=== PATIENT | male | born 1975 | race Caucasian/White ===

== ENCOUNTER → 2023-12-04 | Outpatient (CLI) | payer SELFPAY ==
--- NOTE | 2023-12-04 09:56 | ECHOCS_ITS ---
Reason For Study: ABN EKG, PRE OP Procedure This was a 2D Doppler, Color Flow transthoracic echocardiogram. The study was technically difficult. Contrast injection was performed. Exam performed in department. Left Ventricle Normal size and thickness. The left ventricular ejection fraction is 55 %. Normal diastololic function. Right Ventricle Normal right ventricle. Atria The left and right atria are normal. Mitral Valve Trivial mitral valve insufficiency. Tricuspid Valve Trivial tricuspid valve insufficiency. Unable to estimate RV systolic pressure due to insufficient tricuspid regurgitant envelope. Aortic Valve Trisinus/trileaflet aortic valve. Pulmonic Valve The pulmonic valve is not well visualized. Great Vessels Normal sized aortic root. Pericardium/Pleural No pericardial effusion. Medication 22 gauge I.V. with prn adaptor inserted into right arm. Diluted definity 1ml given slow IV push to enhance endocardial definition. MMode/2D Measurements & Calculations LVIDd: 5.2 cm IVSd: 1.0 cm LVOT diam: 2.6 cm LVIDs: 3.3 cm LVPWd: 1.1 cm FS: 35.7 % LVOT area: 5.5 cm2 Ao root diam: 3.5 cm LAV(MOD-bp): 55.0 ml LVAd ap4: 47.2 cm2 LAV(MOD-bp) Indexed: 24.2 ml/m2 LVLd ap4: 10.0 cm LAV(MOD-sp2): 39.8 ml EDV(MOD-sp4): 179.4 ml LAV(MOD-sp4): 74.0 ml EDV(sp4-el): 188.8 ml LVAs ap4: 29.5 cm2 LVLs ap4: 8.4 cm ESV(MOD-sp4): 86.6 ml ESV(sp4-el): 87.8 ml EF(MOD-sp4): 51.8 % EF(sp4-el): 53.5 % SV(MOD-sp4): 92.9 ml SV(sp4-el): 101.0 ml LA A4 area: 22.6 cm2 LA dimension(2D): 3.2 cm RA A4 area: 15.8 cm2 TAPSE: 1.8 cm Time Measurements MV dec time: 0.16 sec Doppler Measurements & Calculations MV E max ruben: 70.3 cm/sec Lat Peak E' Ruben: 16.8 cm/sec Med Peak E' Ruben: 12.3 cm/sec MV A max ruben: 52.5 cm/sec E/E' lat: 4.2 E/E' med: 5.7 MV E/A: 1.3 MV V2 max: 85.9 cm/sec MV dec slope: 444.4 cm/sec2 Ao V2 max: 127.1 cm/sec MV max P.0 mmHg Ao max P.5 mmHg MV V2 mean: 56.6 cm/sec Ao V2 mean: 90.6 cm/sec MV mean P.4 mmHg Ao mean P.7 mmHg MV V2 VTI: 20.7 cm Ao V2 VTI: 26.4 cm MVA(VTI): 6.2 cm2 AV (velocity ratio): 0.89 FARIBA(I,D): 4.9 cm2 FARIBA(V,D): 4.3 cm2 LV V1 max: 100.1 cm/sec SV(LVOT): 128.3 ml PA V2 max: 133.0 cm/sec LV V1 max P.0 mmHg PA V2 mean: 83.6 cm/sec LV V1 mean P.0 mmHg LV V1 mean: 64.5 cm/sec LV V1 VTI: 23.4 cm ECHO/Echo Complete W/ Contrast Interpretation Summary The left ventricular ejection fraction is 55 %. Ordering Physician: Kelley Hope Referring Physician: Kelley Hope Performed By: Tonya Lora RCS
[2023-12-04 12:09] LABS: ALB/GLOB Ratio 1.2 RATIO (0.9-2.4); AST(SGOT) 16 U/L (15-37); Alanine Aminotransfer ALT/SGPT 22 U/L (16-61); Albumin, Serum 4.2 g/dL (3.2-5.0); Alkaline Phosphatase 57 U/L (45-117); Anion Gap 5 (5-15); BUN 18 mg/dL (7-18); BUN/Creat Ratio 19.7 RATIO (10-20); Calcium,Total 9.8 mg/dL (8.5-10.1); Chloride 102 mmol/L (98-107); Cholesterol 430 mg/dL (200); Creatinine, Serum 0.91 mg/dL (0.70-1.30); EST Glomerular Filtration Rate 95 mL/min (>60); Est Glom Filt Rate - Afr Amer 115 mL/min (>60); Globulin 3.6 g/dL (2.2-4.2); Glucose 123 mg/dL (74-106); High Density Lipoprotein 52 mg/dL; Potassium 3.8 mmol/L (3.5-5.1); Protein, Total 7.8 g/dL (6.4-8.2); Sodium Level 135 mmol/L (136-145); Triglycerides 125 mg/dL; Very Low Density Lipoprotein 25 mg/dL (5-40)
== END | disposition home or self-care (01) ==
PROVIDERS: Referring Provider Internal Medicine Cardiovascular Disease; Visit Provider Internal Medicine Cardiovascular Disease
DX: R94.31 Abnormal electrocardiogram [ECG] [EKG] (principal); E66.9 Obesity, unspecified; I25.10 Atherosclerotic heart disease of native coronary artery without angina pectoris
CPT/HCPCS: 36415; 80053; 80061; 93306; Q9957; A4216; C8929

== ENCOUNTER → 2023-12-29 | Outpatient (CLI) | payer SELFPAY ==
--- OUTSIDE RECORDS SUMMARY | 2023-12-29 11:02 | XMS RPT_ITS | CCD ---
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 Name Role Phone DANIS POWERS, DR TOMAS Nicolas Attending Arlen Patel MD, DR TOMAS Nicolas Attending Arlen abbott Medications Current Medications Medication Drug Class(es) Dates Sig (Normalized) Sig (Original) Cod Liver Oil oral capsule (1 source) Start: 09-15-2023 take 1 capsule by mouth once daily Cod Liver Oil oral capsule Dose = 1 cap(s), Oral, Daily, 0 Refill(s) Start Date: 09/15/23 Status: Ordered Vitamin D3 (1 source) Start: 09-15-2023 Vitamin D3 Dose : 100 mcg = 1 tab(s), Oral, Daily, # 90 tab(s), 0 Refill(s) Start Date: 09/15/23 Status: Ordered Results Test Name Value Interpretation Reference Range Facility .Auto Diffon 09-15-2023 Basophil, Absolute 0.0 10 3/mcL Normal 0.0-0.2 [facility] ([place] Comment on above: Performed By: #### G FR, CBC, ADIFF, BMP, ALB, ABSGEL, ANEU, ABOGEL #### [address] [place], [place] [address] Basophils/100 WBC (Bld) 0.3 % Normal 0.0-2.5 [facility] ([place] Comment on above: Performed By: #### G FR, CBC, ADIFF, BMP, ALB, ABSGEL, ANEU, ABOGEL #### [address] [place], [place] [address] Eosinophil, Absolute 0.1 10 3/mcL Normal 0.0-0.4 [facility] ([place] Comment on above: Performed By: #### G FR, CBC, ADIFF, BMP, ALB, ABSGEL, ANEU, ABOGEL #### [address] [address] Eosinophils/100 WBC (Bld) 1.9 % Normal 0.0-7.0 [facility] ([place] Comment on above: Performed By: #### G FR, CBC, ADIFF, BMP, ALB, ABSGEL, ANEU, ABOGEL #### [address] [address] Lymphocyte, Absolute 1.9 10 3/mcL Normal 0.8-3.9 [facility] ([place] Comment on above: Performed By: #### G FR, CBC, ADIFF, BMP, ALB, ABSGEL, ANEU, ABOGEL #### [address] [address] Lymphocytes/100 WBC (Bld) 36.0 % Normal 10.0-50.0 [facility] ([place] Comment on above: Performed By: #### G FR, CBC, ADIFF, BMP, ALB, ABSGEL, ANEU, ABOGEL #### [address] [address] Monocyte, Absolute 0.4 10 3/mcL Normal 0.2-1.0 [facility] ([place] Comment on above: Performed By: #### G FR, CBC, ADIFF, BMP, ALB, ABSGEL, ANEU, ABOGEL #### [address] [address] Monocytes/100 WBC (Bld) 8.1 % Normal 1.7-13.0 [facility] ([place] Comment on above: Performed By: #### G FR, CBC, ADIFF, BMP, ALB, ABSGEL, ANEU, ABOGEL #### [address] [address] Neutrophils/100 WBC (Bld) 53.7 % Normal 37.0-80.0 [facility] ([place] Comment on above: Performed By: #### G FR, CBC, ADIFF, BMP, ALB, ABSGEL, ANEU, ABOGEL #### [address] [address] .GFRon 09-15-2023 GFR Non- 76 ml/min/1.73sqm Normal [facility] ([place] Comment on above: Result Comment: GFR Population mean for , Non- Americans Ages 20-29 = 116 mL/min/1.73 sq.m. Ages 30-39 = 107 mL/min/1.73 sq.m. Ages 40-49 = 99 mL/min/1.73 sq.m. Ages 50-59 = 93 mL/min/1.73 sq.m. Ages 60-69 = 85 mL/min/1.73 sq.m. Ages 70+ = 75 mL/min/1.73 sq.m. Chronic Kidney Disease: Less than 60 mL/min/1.73 square meters End Stage Renal Disease: Less than 15 mL/min/1.73 square meters Performed By: #### G FR, CBC, ADIFF, BMP, ALB, ABSGEL, ANEU, ABOGEL #### [address] [address] GFR 92 ml/min/1.73sqm Normal [facility] ([place] Comment on above: Result Comment: GFR Population mean for , Non- Americans Ages 20-29 = 116 mL/min/1.73 sq.m. Ages 30-39 = 107 mL/min/1.73 sq.m. Ages 40-49 = 99 mL/min/1.73 sq.m. Ages 50-59 = 93 mL/min/1.73 sq.m. Ages 60-69 = 85 mL/min/1.73 sq.m. Ages 70+ = 75 mL/min/1.73 sq.m. Chronic Kidney Disease: Less than 60 mL/min/1.73 square meters End Stage Renal Disease: Less than 15 mL/min/1.73 square meters Performed By: #### G FR, CBC, ADIFF, BMP, ALB, ABSGEL, ANEU, ABOGEL #### [address] [address] .NEUABSon 09-15-2023 Neutrophil, Absolute 2.9 10 3/mcL Normal 2.9-6.2 [facility] ([place] Comment on above: Performed By: #### G FR, CBC, ADIFF, BMP, ALB, ABSGEL, ANEU, ABOGEL #### [address] [address] ABO/Rh (Gel)on 09-15-2023 ABO/Rh Interp Positive Invalid Interpretation Code [facility] ([place] Comment on above: Performed By: #### G FR, CBC, ADIFF, BMP, ALB, ABSGEL, ANEU, ABOGEL #### [address] [address] ABS (Gel)on 09-15-2023 ABSC Interp (Gel) Negative Normal [facility] ([place] Comment on above: Performed By: #### G FR, CBC, ADIFF, BMP, ALB, ABSGEL, ANEU, ABOGEL #### [address] [address] ALBon 09-15-2023 Albumin Level 4.3 G/dL Normal 3.5-5.0 [facility]) Comment on above: Performed By: #### G FR, CBC, ADIFF, BMP, ALB, ABSGEL, ANEU, ABOGEL #### [address] [address] BMPon 09-15-2023 BUN/Creatinine Ratio 16 ratio Normal 7-27 [facility]) Comment on above: Performed By: #### G FR, CBC, ADIFF, BMP, ALB, ABSGEL, ANEU, ABOGEL #### [address] [address] Calcium [Mass/Vol] 9.7 mg/dL Normal 8.4-10.2 [facility] ([place]) Comment on above: Performed By: #### G FR, CBC, ADIFF, BMP, ALB, ABSGEL, ANEU, ABOGEL #### [address] [address] Chloride [Moles/Vol] 100 mmol/L Normal 98-107 [facility]) Comment on above: Performed By: #### G FR, CBC, ADIFF, BMP, ALB, ABSGEL, ANEU, ABOGEL #### [address] [address] CO2 [Moles/Vol] 28 mmol/L Normal 22-29 [facility] ([place] Comment on above: Performed By: #### G FR, CBC, ADIFF, BMP, ALB, ABSGEL, ANEU, ABOGEL #### [address] [address] Creatinine [Mass/Vol] 1.06 mg/dL Normal 0.70-1.30 [facility] ([place] Comment on above: Performed By: #### G FR, CBC, ADIFF, BMP, ALB, ABSGEL, ANEU, ABOGEL #### [address] [address] Electrolyte Balance 9.0 mEq/L Normal 4.0-15.0 [facility] ([place] Comment on above: Performed By: #### G FR, CBC, ADIFF, BMP, ALB, ABSGEL, ANEU, ABOGEL #### [address] [address] Glucose [Mass/Vol] 95 mg/dL Normal 70-105 [facility] ([place]) Comment on above: Performed By: #### G FR, CBC, ADIFF, BMP, ALB, ABSGEL, ANEU, ABOGEL #### [address] [address] Potassium [Moles/Vol] 4.2 mmol/L Normal 3.5-5.1 [facility] ([place] Comment on above: Performed By: #### G FR, CBC, ADIFF, BMP, ALB, ABSGEL, ANEU, ABOGEL #### [address] [address] Sodium [Moles/Vol] 137 mmol/L Normal 136-145 [facility] ([place]) Comment on above: Performed By: #### G FR, CBC, ADIFF, BMP, ALB, ABSGEL, ANEU, ABOGEL #### [address] [address] Urea nitrogen [Mass/Vol] 17 mg/dL Normal 7-18 [facility] ([place] Comment on above: Performed By: #### G FR, CBC, ADIFF, BMP, ALB, ABSGEL, ANEU, ABOGEL #### [place] [id number] CBCon 09-15-2023 Erythrocyte distribution width (RBC) [Ratio] 13.7 % Normal 11.5-14.5 [facility] ([place] Comment on above: Order Comment: Pre-A dmission Testing Performed By: #### G FR, CBC, ADIFF, BMP, ALB, ABSGEL, ANEU, ABOGEL #### [place] [address] Hematocrit (Bld) [Volume fraction] 43.9 % Normal 42.0-52.0 [facility] ([place] Comment on above: Order Comment: Pre-A dmission Testing Performed By: #### G FR, CBC, ADIFF, BMP, ALB, ABSGEL, ANEU, ABOGEL #### [place] [address] Hgb 15.1 G/dL Normal 14.0-18.0 [facility] ([place] Comment on above: Order Comment: Pre-A dmission Testing Performed By: #### G FR, CBC, ADIFF, BMP, ALB, ABSGEL, ANEU, ABOGEL #### [place] [address] MCH (RBC) [Entitic mass] 30.7 pg Normal 27.0-31.2 [facility] ([place] Comment on above: Order Comment: Pre-A dmission Testing Performed By: #### G FR, CBC, ADIFF, BMP, ALB, ABSGEL, ANEU, ABOGEL #### [place] [address] MCHC 34.4 G/dL Normal 31.8-35.4 [facility] ([place] Comment on above: Order Comment: Pre-A dmission Testing Performed By: #### G FR, CBC, ADIFF, BMP, ALB, ABSGEL, ANEU, ABOGEL #### [place] [id number] MCV (RBC) [Entitic vol] 89.2 fL Normal 80.0-94.0 [facility] ([place] Comment on above: Order Comment: Pre-A dmission Testing Performed By: #### G FR, CBC, ADIFF, BMP, ALB, ABSGEL, ANEU, ABOGEL #### [address] [address] Platelet 208 10 3/mcL Normal 130-400 [facility] ([place] Comment on above: Order Comment: Pre-A dmission Testing Performed By: #### G FR, CBC, ADIFF, BMP, ALB, ABSGEL, ANEU, ABOGEL #### [address] [address] Platelet mean volume (Bld) [Entitic vol] 9.0 fL Normal 7.4-10.4 [facility] [place] Comment on above: Order Comment: Pre-A dmission Testing Performed By: #### G FR, CBC, ADIFF, BMP, ALB, ABSGEL, ANEU, ABOGEL #### [address] [address] RBC 4.92 10 6/mcL Normal 4.04-6.13 [facility] [place] Comment on above: Order Comment: Pre-A dmission Testing Performed By: #### G FR, CBC, ADIFF, BMP, ALB, ABSGEL, ANEU, ABOGEL #### [address] [address] WBC 5.3 10 3/mcL Normal 4.6-10.8 [facility] [place] Comment on above: Order Comment: Pre-A dmission Testing Performed By: #### G FR, CBC, ADIFF, BMP, ALB, ABSGEL, ANEU, ABOGEL #### [address] [address] LABORATORYOrdered By: Digna Randall on 09-15-2023 ABO and Rh group Nom (Bld) Blood group B Rh(D) positive Invalid Interpretation Code AO BB Auto SS Blood group antibody screen Ql Negative ABSC (09/15/23 11:06 AM) Normal AO BB Auto SS LABORATORYOrdered By: [employer] on 09-15-2023 Albumin BCP dye [Mass/Vol] 4.3 G/dL Normal 3.5 - 5.0 G/dL AO ADM SS Basophil, Absolute 0.0 103/mcL Normal 0.0 - 0.2 10^3/mcL AO Workflow SS Basophils/100 WBC (Bld) 0.3 % Normal 0.0 - 2.5 % AO Workflow SS Calcium [Mass/Vol] 9.7 mg/dL Normal 8.4 - 10. 2 mg/dL AO ADM SS Chloride [Moles/Vol] 100 mmol/L Normal 98 - 10 7 mmol/L AO ADM SS CO2 [Moles/Vol] 28 mmol/L Normal 22 - 29 mmol/L AO ADM SS Creatinine [Mass/Vol] 1.06 mg/dL Normal 0.70 - 1.30 mg/dL AO ADM SS Electrolyte Balance 9.0 mEq/L Normal 4.0 - 15 .0 mEq/L AO ADM SS Eosinophil, Absolute 0.1 103/mcL Normal 0.0 - 0 .4 10^3/mcL AO Workflow SS Eosinophils/100 WBC (Bld) 1.9 % Normal 0.0 - 7.0 % AO Workflow SS Erythrocyte distribution width (RBC) [Ratio] 13.7 % Normal 11.5 - 14.5 % AO Workflow SS GFR/1.73 sq M.predicted among blacks MDRD (S/P/Bld) [Vol rate/Area] 92 ml/min/1.73sqm Invalid Interpretation Code AO Chemistry S Comment on above: Interpretive Data: GFR Population mean for , Non- Americans Ages 20-29 = 116 mL/min/1.73 sq.m. Ages 30-39 = 107 mL/min/1.73 sq.m. Ages 40-49 = 99 mL/min/1.73 sq.m. Ages 50-59 = 93 mL/min/1.73 sq.m. Ages 60-69 = 85 mL/min/1.73 sq.m. Ages 70+ = 75 mL/min/1.73 sq.m. Chronic Kidney Disease: Less than 60 mL/min/1.73 square meters End Stage Renal Disease: Less than 15 mL/min/1.73 square meters GFR/1.73 sq M.predicted among non-blacks MDRD (S/P/Bld) [Vol rate/Area] 76 ml/min/1.73sqm Invalid Interpretation Code AO Chemistry S Comment on above: Interpretive Data: GFR Population mean for , Non- Americans Ages 20-29 = 116 mL/min/1.73 sq.m. Ages 30-39 = 107 mL/min/1.73 sq.m. Ages 40-49 = 99 mL/min/1.73 sq.m. Ages 50-59 = 93 mL/min/1.73 sq.m. Ages 60-69 = 85 mL/min/1.73 sq.m. Ages 70+ = 75 mL/min/1.73 sq.m. Chronic Kidney Disease: Less than 60 mL/min/1.73 square meters End Stage Renal Disease: Less than 15 mL/min/1.73 square meters Glucose [Mass/Vol] 95 mg/dL Normal 70 - 105 mg/dL AO ADM SS Hematocrit (Bld) [Volume fraction] 43.9 % Normal 42.0 - 52.0 % AO Workflow SS Hemoglobin (Bld) [Mass/Vol] 15.1 G/dL Normal 14.0 - 18.0 G/dL AO Workflow SS Lymphocyte, Absolute 1.9 103/mcL Normal 0.8 - 3 .9 10^3/mcL AO Workflow SS Lymphocytes/100 WBC (Bld) 36.0 % Normal 10.0 - 50.0 % AO Workflow SS MCH (RBC) [Entitic mass] 30.7 pg Normal 27.0 - 31.2 pg AO Workflow SS MCHC 34.4 G/dL Normal 31.8 - 35.4 G/dL AO Workflow SS MCV (RBC) [Entitic vol] 89.2 fL Normal 80.0 - 94.0 fL AO Workflow SS Monocyte, Absolute 0.4 103/mcL Normal 0.2 - 1.0 10^3/mcL AO Workflow SS Monocytes/100 WBC (Bld) 8.1 % Normal 1.7 - 13.0 % AO Workflow SS Neutrophil, Absolute 2.9 103/mcL Normal 2.9 - 6 .2 10^3/mcL AO Workflow SS Neutrophils/100 WBC (Bld) 53.7 % Normal 37.0 - 80.0 % AO Workflow SS Platelet mean volume (Bld) [Entitic vol] 9.0 fL Normal 7.4 - 10.4 fL AO Workflow SS Platelets (Bld) [#/Vol] 208 103/mcL Normal 130 - 400 10^3/mcL AO Workflow SS Potassium [Moles/Vol] 4.2 mmol/L Normal 3.5 - 5.1 mmol/L AO ADM SS RBC (Bld) [#/Vol] 4.92 106/mcL Normal 4.04 - 6.1 3 10^6/mcL AO Workflow SS Sodium [Moles/Vol] 137 mmol/L Normal 136 - 145 mmol/L AO ADM SS Urea nitrogen [Mass/Vol] 17 mg/dL Normal 7 - 18 mg/dL AO ADM SS Urea nitrogen/Creatinine [Mass ratio] 16 ratio Normal 7 - 27 ratio AO ADM SS WBC (Bld) [#/Vol] 5.3 103/mcL Normal 4.6 - 10.8 10^3/mcL AO Workflow SS LABORATORYOrdered By: Evie Foster on 09-15-2023 MRSA (PCR) Not Detected 1 (09/15/23 11:06 AM) Normal Not Detected Auto Viro/Sero SS Comment on above: Result Comment: Note s MRSA PCR Int MRSA DNA not detected by Real-Time Polymerase Chain Reaction (PCR). A negative result may be due to intermittent colonization. Colonization may vary depending on patient treatment, patient status, or exposure to high-risk environments.As with all PCR based in vitro diagnostic tests, extremely low levels of target below the limit of detection of the assay may be detected, but results may not be reproducible. Invalid Interpretation Code Auto Viro/Sero SS MRSAPCRon 09-15-2023 MRSA (PCR) Not detected Normal Not Detected [facility] ([place]) Comment on above: Result Comment: Note s Performed By: #### M RSAPCR #### [place] [address] MRSA PCR Int Normal [facility] ([place]) Comment on above: Result Comment: MRSA DNA not detected by Real-Time Polymerase Chain Reaction (PCR). A negative result may be due to intermittent colonization. Colonization may vary depending on patient treatment, patient status, or exposure to high-risk environments. As with all PCR based in vitro diagnostic tests, extremely low levels of target below the limit of detection of the assay may be detected, but results may not be reproducible. See Below Performed By: #### M RSAPCR #### [place] [address] Vital Signs Date Time Vital Sign Value Performing Clinician Miguel tabaresmichael 09-15-2023 10:45-[address] TOMAS MOSCOSO MD [facility] 09-15-2023 10:45-[address] TOMAS Bal [facility] 09-15-2023 10:45-0400 Body height 177.[address] TOMAS MOSCOSO MD [facility] 09-15-2023 10:45-0400 Body weight 118.[address] TOMAS MOSCOSO MD [facility] 09-15-2023 10:45-0400 Body weight 37.39 kg/m2 DR TOMAS MOSCOSO MD [facility] 09-15-2023 10:45-0400 Diastolic Blood Pressure Non-Invasive 78 mm[Hg] DR TOMAS MOSCOSO MD [facility] 09-15-2023 10:45-0400 Heart rate 64 /min DR TOMAS MOSCOSO MD [facility] 09-15-2023 10:45-0400 Respiratory rate 18 /min DR TOMAS MOSCOSO MD [facility] 09-15-2023 10:45-0400 Systolic Blood Pressure Non-Invasive 119 mm[Hg] DR TOMSA MOSCOSO MD [facility] Encounters Encounter Date Encounter Type Care Provider Facility Start: 09-23-[address] TOMAS MOSCOSO MD F acility:B Start: 09-15-2023 End: 09-15-[address] TOMAS MOSCOSO MD [facility] Start: 09-15-2023 End: 09-15-[address] TOMAS MOSCOSO MD Facility:B Payers Date Payer Category Payer Unknown [id number] 1975 Unknown [id number] 1975 Unknown [id number] Social History Date Type Detail Facility Start: 09-15-2023 Tobacco smoking status Smoker (simbai ng) [facility] Sex Assigned At Male [facility] Evaluation + Plan note Note Date & Type Note Facility Evaluation + Plan note Future Appointments [facility] Hospital course Narrative Note Date & Type Note Facility Hospital course Narrative No data available for this section [facility] Hospital Discharge instructions Note Date & Type Note Facility Hospital Discharge instructions No data available for this section [facility] Progress note Note Date & Type Note Facility Progress note No data available for this section [facility] Summary Purpose Family History No Family History Records Found Advance Directives No Advanced Directives Records Found Additional Source Comments Patient Care team informatio n (unrecognized section and content) Care Team Related Persons Name: AGATHA BUENOSYDNEE (unrecognized sect ion and content) No Status Records Found INFORMATION SOURCE (unrecogn ized section and content) DATE CREATED AUTHOR 09/25/2023 [facility] ([place]) FOR RECORDS PERTAINING TO PATIENTS WHO ARE OR HAVE BEEN ENROLLED IN A CHEMICAL DEPENDENCY/SUBSTANCEABUSE PROGRAM, SOME INFORMATION MAY BE OMITTED. This clinical summary was aggregated from multiple sources. Caution should be exercised in using it in the provision of clinical care. This summary normalizes information from multiple sources, and as a consequence, information in this document may materially change the coding, format and clinical context of patient data. In addition, data may be omitted in some cases. CLINICAL DECISIONS SHOULD BE BASED ON THE PRIMARY CLINICAL RECORDS. [facility] provides no warranty or guarantee of the accuracy or completeness of information in this document.
--- NOTE | 2024-01-01 16:09 | STRESSREP_ITS ---
Stress Test Report Date: 12/29/2023 Procedure: Exercise tolerance test Indications: Arrhythmia Consent: Per the patient Procedure: The patient exercised on a Abimael protocol for 10 minutes achieving a peak heart rate of 176 bpm (101% predicted maximal heart rate) with a peak blood pressure 172/92 mmHg and a peak MET capacity of approximately 13.4 MET's. The baseline ECG demonstrated sinus rhythm. The peak exercise ECG demonstrated sinus tachycardia with no ischemic changes. There were no cardiac dysrhythmias pretest, during exercise, or recovery. The functional capacity was considered excellent. The patient had no complaints of chest discomfort during exercise or recovery. The examination was discontinued secondary to target heart rate being achieved. Impression: 1. Technically adequate (percent predicted maximal heart rate greater than 85%) exercise tolerance test 2. Peak exercise ECG with no ischemic changes 3. There were no cardiac dysrhythmias during exercise or recovery This note was generated with Scheduling Employee Scheduling Softwareation software. It may contain incorrect words, spelling, and punctuation that were not noted in checking the note before signing.
== END | disposition home or self-care (01) ==
PROVIDERS: Referring Provider Nurse Practitioner Gerontology; Visit Provider Nurse Practitioner Gerontology
DX: R94.31 Abnormal electrocardiogram [ECG] [EKG] (principal)
CPT/HCPCS: 93017

== ENCOUNTER → 2024-07-08 | Outpatient (CLI) | payer SELFPAY ==
--- NOTE | 2024-07-08 16:20 | RAD_ITS ---
PROCEDURE: BONE LENGTH 07/08/2024 REASON FOR EXAM: UNEQUAL LIMB LENGTH ACQUIRED M, age 48 y/o . 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 TECHNIQUE: Frontal view of the lower extremities was obtained. COMPARISON: None FINDINGS: There is deformity and compression of the left femoral head in keeping with the patient's age of prior Legg Perthes disease. The left lower extremity is approximately 1 cm longer than the right. RAD/Bone Length IMPRESSION: The left lower extremity is approximately 1 cm longer than the right lower extr emity. Recommend follow-up as clinically warranted. Reading Location: [facility]
== END | disposition home or self-care (01) ==
LOC: RAD 15:59
PROVIDERS: Referring Provider Specialist; Visit Provider Specialist
DX: M21.70 Unequal limb length (acquired), unspecified site (principal)
CPT/HCPCS: 77073

== ENCOUNTER → 2024-07-15 | Outpatient (CLI) | payer SELFPAY ==
--- NOTE | 2024-07-15 06:47 | EKG12_ITS ---
Test Reason : PRE OP Blood Pressure : */* mmHG Vent. Rate : 65 BPM Atrial Rate : 65 BPM P-R Int : 184 ms QRS Dur : 102 ms QT Int : 422 ms P-R-T Axes : 31 9 19 degrees QTcB Int : 438 ms Normal sinus rhythm with sinus arrhythmia Cannot rule out Inferior infarct , age undetermined Abnormal ECG Confirmed by TARA POWERS, ILENE ([id number]), editorial clerk MAKENZIE GARDNER ([id number]) on 07/19/2024 9:14:37 AM Referred By: Ethan Marroquin Confirmed By: ILENE PACHECO MD
[2024-07-15 08:23] LABS: Absolute Neutrophil Count 2.8 X10^3/uL (2.0-7.7); Basophil# 0.02 X10^3/uL; Basophil% 0.4 % (0-1); Eosinophil# 0.12 X10^3/uL; Eosinophils% 2.2 % (0-5); Hematocrit 43.5 % (40-54); Hemoglobin 14.8 g/dL (13.0-16.5); Lymphocyte % 36.8 % (19-41); Mean Corpuscular Hgb 29.8 pg (27.0-32.0); Mean Corpuscular Volume 87.5 fL (80-94); Mean Platelet Vol. 10.4 fl (6.2-12.0); Monocyte# 0.45 X10^3/uL; Monocyte% 8.3 % (0-10); NRBC Flagged by Analyzer 0 % (0-5); Neutrophil # 2.83 X10^3/uL (2.7-7.7); Neutrophil % 52.1 % (47-70); Platelet Count 199 K/mm3 (150-450); RBC Distribution Width CV 13.6 % (11.6-14.6); RBC Distribution Width SD 43.6 fl (35.1-43.9); Red Blood Count 4.97 M/mm3 (4.6-6.2); White Blood Count 5.4 K/mm3 (4.4-11.0)
[2024-07-15 08:46] LABS: Albumin, Serum 4.5 g/dL (3.5-5.0); Anion Gap 10 (5-15); BUN 18 mg/dL (4-19); BUN/Creat Ratio 19.6 RATIO (10-20); Calcium,Total 9.6 mg/dL (7.6-11.0); Carbon Dioxide 24.5 mmol/L (21.0-32.0); Chloride 102 mmol/L (98-108); Creatinine, Serum 0.89 mg/dL (0.70-1.20); EST Glomerular Filtration Rate 107 (>60); Glucose 87 mg/dL (70-99); Potassium 3.9 mmol/L (3.3-5.1); Sodium Level 136 mmol/L (133-145)
== END | disposition home or self-care (01) ==
PROVIDERS: Referring Provider Specialist; Visit Provider Specialist
DX: Z01.818 Encounter for other preprocedural examination (principal); Z01.810 Encounter for preprocedural cardiovascular examination
CPT/HCPCS: 36415; 80048; 82040; 85025; 93005